=== PATIENT | female | born 1955 | race Caucasian/White ===

== ENCOUNTER → 2022-03-28 11:02 | Outpatient (CLI) | payer OTHER, MEDICAID, SELFPAY ==
--- NOTE | 2022-03-28 | DI.RAD.S_ITS ---
PROCEDURE: XR CHEST 2V INDICATIONS: NICOTINE DEPENDENCE TECHNIQUE: 2 views of the chest were acquired. COMPARISON: None. FINDINGS: Surgical changes and devices: None. Lungs and pleura: Lungs are clear. No pleural effusions or pneumothorax. Mediastinum: Mediastinal contours are normal. Heart size is normal. Bones and chest wall: No suspicious bony abnormalities. Soft tissues appear unremarkable. IMPRESSION: No evidence for active disease in the chest. Dictated by: Guillermo Goldman M.D. on 03/28/2022 at 11:58 Approved by: Guillermo Goldman M.D. on 03/28/2022 at 12:37
== END ==
PROVIDERS: PCP Family Medicine; Referring Provider Family Medicine; Visit Provider Family Medicine
DX: F17.200 Nicotine dependence, unspecified, uncomplicated (principal)
CPT/HCPCS: 71046